=== PATIENT | male | born 1990 | race Caucasian/White ===

== ENCOUNTER 2017-04-04 13:46 | Emergency (ER) | payer SELFPAY ==
[2017-04-04 14:08] VITALS: BP 114/62
--- NOTE | 2017-04-04 16:21 | UC ---
Ciaran Mata Alok, scribed for Marissa Thomason MD on 04/04/17 at 1604 . Eye Complaint HPI - HPI Summary HPI Summary: 27M presents to [facility] for redness/swelling under to left cheek progressive x past 3 days. Pt states pain started near left side of nose and has spread. Pt states feels similar to previous dental infection. Pt sates has mild pain diffusely across upper teeth. Pt reports had migraine FRANCO this morning which has mostly resolved. Pt denies fever, chills, rash, N/V, dysphagia, visual changes, ear pain. No anlagesia taken. Pt notes h/o dental problems and states his last does of antibiotics was 6 months ago. Pt does not have a regular dentist and states he moved to the area recently. Pt does not take any regular medications. Pt has not taken any OTC medications [employer]. Pt has NKDA. Pt smokes <1ppd. Pt denies ETOH or illicit drug use. Patient medications reviewed this visit - History of Current Complaint Chief Complaint: UCDentalProblem Stated Complaint: EYE COMPLAINT Time Seen by Provider: 04/04/17 15:43 Hx Obtained From: Patient Onset/Duration: Lasting Days, Still Present Timing: Constant Severity Initially: Moderate Severity Currently: Moderate Pain Intensity: 4 Pain Scale Used: 0-10 Numeric Location of Injury: Other - left cheek Aggravating Factor(s): Nothing Alleviating Factor(s): Nothing Associated Signs And Symptoms: Positive: Swelling. Negative: Vision Impairment Bilateral, Fever - Allergies/Home Medications Allergies/Adverse Reactions: Allergies Allergy/AdvReac Type Severity Reaction Status Date / Time No Known Allergies Allergy Verified 04/04/17 14:08 PMH/Surg Hx/FS Hx/Imm Hx Previously Healthy: Yes - Surgical History Surgical History: None - Family History Known Family History: Negative: Cardiac Disease, Hypertension, Diabetes - Social History Occupation: Unemployed Lives: With Family - with friend in [place] Alcohol Use: None Substance Use Type: None Smoking Status (MU): Current Every Day Smoker Review of Systems Constitutional: Negative Skin: Negative Eyes: Negative ENT: Dental Pain, Other - left cheek pain and swelling Respiratory: Negative Cardiovascular: Negative Gastrointestinal: Negative Genitourinary: Negative Motor: Negative Neurovascular: Negative Musculoskeletal: Negative Neurological: Headache Psychological: Negative All Other Systems Reviewed And Are Negative: Yes Physical Exam Triage Information Reviewed: Yes Appearance: Well-Appearing, No Pain Distress, Well-Nourished Vital Signs: Initial Vital Signs Temp 98.7 F 04/04/17 14:05 Pulse 86 04/04/17 14:05 Resp 16 04/04/17 14:05 BP 114/62 04/04/17 14:05 Pulse Ox 100 04/04/17 14:05 Vital Signs Reviewed: Yes Eye Exam: Normal ENT: Positive: Hearing grossly normal, Pharynx normal, TMs normal, Other: - pt with poor dentition - multiple caries, broken teeth, gum disease uvula mildline No exudate No asymmetry Pt with mild TTP upper 10-12 no bleeding gumline Pt with mild edema left cheek to zygomatic arch. No erythema, no warmth no fluctance, no induration. Negative: Pharyngeal erythema, TM bulging, TM dull Dental: Positive: Gross Decay/Caries @ - diffuse, Dental Fracture @. Negative: Cervical Lymphadenopathy Neck exam: Normal Neck: Positive: Supple, Nontender, No Lymphadenopathy Respiratory Exam: Normal Respiratory: Positive: Chest non-tender, Lungs clear, Normal breath sounds Cardiovascular Exam: Normal Cardiovascular: Positive: RRR, No Murmur, Pulses Normal Abdominal Exam: Normal Abdomen Description: Positive: Nontender, No Organomegaly, Soft Musculoskeletal Exam: Normal Musculoskeletal: Positive: Strength Intact, ROM Intact Neurological Exam: Normal Neurological: Positive: Alert, Muscle Tone Normal Psychological Exam: Normal Skin Exam: Normal Eye Complaint Course/Dx - Course Course Of Treatment: Pt with diffusely poor dentition. Pt with mild edema left cheek. Suspect dental abscess. Will start Clinda - d/w pt diarrhea. motrin/ apap. salt water rinses. dental clinic list provided. return precautions discussed. ice. pt comfortable and in agreement with plan - Differential Dx/Diagnosis Provider Diagnoses: dental abscess Discharge - Discharge Plan Condition: Stable Disposition: HOME Prescriptions: Clindamycin Cap(NF) [Cleocin 300 mg Cap(NF)] 300 mg PO TID #30 cap Patient Education Materials: Dental Abscess (ED) Referrals: No Primary Care Phys,NOPCP [Primary Care Provider] - Additional Instructions: - Take antibiotics as prescribed until gone - these will likely cause diarrhea - Okay to alternate ibuprofen (Advil, Motrin) and tylenol every 3 hours as needed for pain or fever - swish and spit with warm salt water rinses 3-4 times a day - you have been given a list of dental clinics- it is important that you work to arrange transportation to a dental clinic If you develop increased swelling, vomiting, headache or other concerns you should go to an emergency department The documentation as recorded by the Ciaran campo Alok accurately reflects the service I personally performed and the decisions made by me, Marissa Thomason MD.
== END 2017-04-04 16:21 | disposition home or self-care (01) ==
LOC: UCEAST 13:46
DX: K04.7 Periapical abscess without sinus (principal); Z72.0 Tobacco use
CPT/HCPCS: 99202; G0463